=== PATIENT | female | born 1980 | race Caucasian/White ===

== ENCOUNTER 2018-02-07 02:34 | Inpatient (IN) ==
--- NOTE | 2018-02-07 03:40 | P.HPOB ---
History of Present Illness Primary Care Physician: UNKNOWN Dr. Lai Chief Complaint: Contractions History of Present Illness: Patient is a 37-year-old white female 36 weeks previous 1 for breech and now complains of regular contractions with pain. No leakage of fluid or bleeding. Patient sees Dr. Lai for care and then plan to repeat . This baby is also breech on the last exam and ultrasound only days ago Weeks Gestation:: 36 Para: 1 ( section for breech) : 2 Review of Systems Constitutional: Denies anorexia, Denies body ache(s), Denies chills, Denies daytime sleepiness, Denies excessive sweating, Denies fatigue, Denies fever(s), Denies headache(s), Denies increased appetite, Denies lack of energy, Denies malaise, Denies night sweats, Denies weakness, Denies weight gain, Denies weight loss, Denies other Cardiovascular: Denies bluish discoloration of hand/feet, Denies chest pain, Denies chest pain at rest, Denies chest pain with activity, Denies excessive sweating, Denies fainting, Denies fast heart rate, Denies foot swelling, Denies generalized swelling, Denies irregular heart rhythm, Denies leg pain with activity, Denies leg sores, Denies leg swelling, Denies lightheadedness, Denies radiating jaw, neck or arm pain, Denies rapid, pounding, or irregular heartbeat , Denies shortness of breath, Denies shortness of breath with activity, Denies shortness of breath when lying down, Denies shortness of breath causing sudden awakening, Denies slow heart rate, Denies other Respiratory: Denies change in phlegm color, Denies chest congestion, Denies cough, Denies coughing up blood, Denies excessive phlegm production, Denies pain on inspiration, Denies pain with cough, Denies shortness of breath, Denies shortness of breath with activity, Denies snoring, Denies stridor, Denies wheezing, Denies other Gastrointestinal: Reports abdominal pain, Denies belching, Denies black, tarry stools, Denies bloating, Denies bright, red blood in stools, Denies change in bowel habits, Denies constant urge to pass stool, Denies change in stools, Denies coffee ground vomit, Denies constipation, Denies cramping, Denies difficulty swallowing, Denies excessive passing of gas, Denies feeling full early, Denies heartburn, Denies incontinent of stools, Denies loose stools, Denies nausea, Denies pain with swallowing, Denies vomiting, Denies vomiting blood, Denies other Genitourinary: Denies abnormal periods, Denies abnormal vaginal bleeding, Denies absent period, Denies bleeding between periods, Denies blood in urine, Denies difficulty starting urination, Denies difficulty urinating, Denies dribbling after urination, Denies frequent nighttime urination, Denies genital itching, Denies genital lesions, Denies heavy periods, Denies hot flashes, Denies light periods, Denies nipple discharge, Denies painful intercourse, Denies painful periods, Denies painful urination, Denies pelvic pain, Denies prolapse symptoms, Denies sexual problems, Denies side pain, Denies urinary incontinence, Denies urinary urgency, Denies vaginal discharge, Denies vaginal dryness, Denies vaginal odor, Denies vaginal itching, Denies other Neurologic: Denies abnormal hearing, Denies abnormal movements, Denies abnormal speech, Denies abnormal walking, Denies behavioral changes, Denies burning sensations, Denies confusion, Denies dizziness, Denies fainting, Denies frequent falls, Denies headache(s), Denies lack of coordination, Denies localized weakness, Denies loss of vision, Denies memory loss, Denies numbness, Denies other visual disturbances, Denies radiating pain, Denies restless legs, Denies convulsions, Denies seizure-like activity, Denies sensory deficit, Denies tingling, Denies tingling/numbness/burning sensations, Denies tremor(s), Denies unsteadiness, Denies weakness, Denies other PMFSH - Medical History Medical History: Medical History (Last Updated 02/07/18 @ 03:36 by Bakari Dhaliwal MD) Previous section complicating - Tobacco History Smoking Status: Never smoker - Alcohol History How Often Do You Have a Drink Containing Alcohol: Never - Substance Use History Substance History: No History of Abuse - Travel History History of Recent Travel: No Recent Travel in the [facility] Within the Last 8 Weeks: No Recent Travel Out of the Country Within the Last 8 Weeks: No Exam Vital signs: Vital Signs 02/07/18 03:04 02/07/18 03:05 Temperature 98.0 F Pulse Rate 86 Respiratory Rate 18 Blood Pressure 119/71 - Constitutional mild distress - Routine HEENT Exam Head: Present: normocephalic, atraumatic Eye: Present: PERRL - Routine Respiratory Exam Present: CTA bilaterally - Routine Cardiovascular Exam Present: RRR, S1, S2 - Routine Abdominal Exam Comments: Size equal dates - Routine Exam Comments: Closed thick and high - Routine Neurological Exam Present: alert, oriented X3, CN II-XII intact Caprini VTE Risk Assessment Caprini VTE Risk Assessment: No/Low Risk (score <= 1) Caprini Risk Assessment Model: Point Value = 1 Point Value = 2 Point Value = 3 Point Value = 5 Age 41-60 Minor surgery BMI > 25 kg/m2 Swollen legs Varicose veins or History of unexplained or recurrent spontaneous Oral contraceptives or hormone replacement Sepsis (< 1 month) Serious lung disease, including pneumonia (< 1 month) Abnormal pulmonary function Acute myocardial infarction Congestive heart failure (< 1 month) History of inflammatory bowel disease Medical patient at bed rest Age 61-74 Arthroscopic surgery Major open surgery (> 45 min) Laparoscopic surgery (> 45 min) Malignancy Confined to bed (> 72 hours) Immobilizing plaster cast Central venous access Age >= 75 History of VTE Family history of VTE Factor V Leiden Prothrombin [id number] Lupus anticoagulant Anticardiolipin antibodies Elevated serum homocysteine Heparin-induced thrombocytopenia Other congenital or acquired thrombophilia Stroke (< 1 month) Elective arthroplasty Hip, pelvis, or leg fracture Acute spinal cord injury (< 1 month) Prophylaxis Regimen: Total Risk Factor Score Risk Level Prophylaxis Regimen 0-1 Low Early ambulation 2 Moderate Order ONE of the following: *Sequential Compression Device (SCD) *Heparin 5000 units SQ BID 3-4 Higher Order ONE of the following medications: *Heparin 5000 units SQ TID *Enoxaparin/Lovenox 40 mg SQ daily (WT < 150 kg, CrCl > 30 mL/min) *Enoxaparin/Lovenox 30 mg SQ daily (WT < 150 kg, CrCl > 10-29 mL/min) *Enoxaparin/Lovenox 30 mg SQ BID (WT < 150 kg, CrCl > 30 mL/min) AND/OR *Sequential Compression Device (SCD) 5 or more Highest Order ONE of the following medications: *Heparin 5000 units SQ TID (Preferred with Epidurals) *Enoxaparin/Lovenox 40 mg SQ daily (WT < 150 kg, CrCl > 30 mL/min) *Enoxaparin/Lovenox 30 mg SQ daily (WT < 150 kg, CrCl > 10-29 mL/min) *Enoxaparin/Lovenox 30 mg SQ BID (WT < 150 kg, CrCl > 30 mL/min) AND *Sequential Compression Device (SCD) Assessment and Plan - Diagnosis (1) Previous section complicating Code(s): O34.219 - Maternal care for unspecified type scar from previous delivery Status: Acute (2) Uterine contractions during Code(s): O62.2 - Other uterine inertia Status: Acute (3) Breech presentation Code(s): O32.1XX0 - Maternal care for breech presentation, not applicable or unspecified Status: Acute - Plan This patient is a multiparous patient previous at 36 weeks with regular painful contractions are every 3 minutes, will begin IV fluid for hydration check preop labs notify Dr. Lai she may need to repeat section tonight
[2018-02-07] MEDS ORDERED: Citric Acid/Sodium Citrate Liq 30 ML UDC PO SCH (03:45)
[2018-02-07 03:54] LABS: Baso % (Auto) 0.2 % (0.0-2.0); Eos % (Auto) 0.2 % (0.0-4.0); Hematocrit 39.9 % (35.0-46.0); Hemoglobin 13.2 gm/dL (11.6-15.3); Lymph # (Auto) 1.7 th/mm3 (1.0-4.8); Lymph % (Auto) 13.3 % (9.0-44.0); Mean Corpuscular HGB Conc 33.2 % (32.0-36.0); Mean Corpuscular Hemoglobin 28.9 pg (27.0-34.0); Mean Corpuscular Volume 87.1 fL (80.0-100.0); Mean Platelet Volume 11.6 fL (7.0-11.0); Mono # (Auto) 0.9 th/mm3 (0.0-0.9); Mono % (Auto) 7.1 % (0.0-8.0); Neut # (Auto) 10.2 th/mm3 (1.8-7.7); Neut % (Auto) 79.2 % (16.0-70.0); Platelet Count 123 th/mm3 (150-450); Red Blood Count 4.58 mil/mm3 (4.00-5.30); Red Cell Distribution Width 13.7 % (11.6-17.2); White Blood Count 12.8 th/mm3 (4.0-11.0)
[2018-02-07] MEDS ORDERED: ceFAZolin Inj 2,000 MG in Sodium Chlor 0.9% Inj 80 ML IV.SIG SCH (04:00)
[2018-02-07 04:39] LABS: Amphetamine Screen,Urine Neg (Neg); Barbiturate Screen,Urine Neg (Neg); Bilirubin,Urine Negative (Negative); Cannabinoid Screen,Urine Neg (Neg); Clarity,Urine Clear (Clear); Cocaine Screen,Urine Neg (Neg); Color,Urine Yellow (Yellw/Straw); Glucose,Urine (UA) Negative (Negative); Hyaline Casts,Urine 1 /lpf (0-3); Leukocyte Esterase,Urine Negative (Negative); Mucus,Urine Few /lpf (Occasional); Nitrite,Urine Negative (Negative); Specific Gravity,Urine 1.014 (1.002-1.035); Squamous Epithelial Cell,Urine 1 /hpf (0-5)
[2018-02-07 04:46] LABS: Opiate Screen,Urine Neg (Neg)
[2018-02-07] MEDS ORDERED: Morphine Sulfate PF Inj 5 MG/10 ML Ampul ONE (04:52)
[2018-02-07] MEDS ORDERED: Oxytocin 30 Units/500ml Premix 30 UNITS/500 ML BAG IV.SIG ONE (04:58)
[2018-02-07] MEDS ORDERED: Zolpidem Tartrate 5 MG Tablet PO PRN (04:58)
--- NOTE | 2018-02-07 06:51 | MH ---
cc: Yeyo Lai MD DATE OF ADMISSION: 02/07/2018 ADMITTING DIAGNOSES: 1. at 36-37 weeks with early labor. 2. Previous section. 3. Multiparity. HISTORY OF PRESENT ILLNESS: This patient is a 37-year-old white female, para 1-0-0-1, with LMP 05/31/2017, EDC of 03/07/2018. Patient reported contractions starting at 5:30 p.m. yesterday. They have increased in intensity throughout the night. Was admitted this morning with contractions every 2 minutes, extremely painful, with early cervical dilation. She desires repeat section and permanent sterilization. PAST SURGICAL HISTORY: at 38 weeks with early labor, breech. MEDICATIONS: Vitamins. ALLERGIES: NONE. TRANSFUSIONS: None. SOCIAL HISTORY: She is . She is employed. Alcohol, tobacco, and drugs are none. FAMILY HISTORY: Noncontributory. REVIEW OF SYSTEMS: Negative. PHYSICAL EXAMINATION: GENERAL: Gravid white female in labor. HEENT: Normal. CHEST: Clear. HEART: Regular rate. BREASTS: Symmetrical. ABDOMEN: Gravid. EFW of 3000 grams. PELVIC: Cervix is 1-2, 70, possible breech, intact, -3. ASSESSMENT: As above. PLAN: She is now admitted for repeat section and the patient desires permanent sterilization. I advised the tubal is permanent, nonreversible, with a small risk of failure. The patient wished to proceed. Discussed small risk of prematurity. MD BREANA Waller/nahid , 04:56 AM , 05:01 AM
[2018-02-07] MEDS ORDERED: fentaNYL Citrate Inj 100 MCG/2 ML Ampul ONE (06:56)
[2018-02-07] MEDS ORDERED: Oxytocin 30 Units/500ml Premix 30 UNITS/500 ML BAG ONE ×2 (07:49→07:50)
--- NOTE | 2018-02-07 07:49 | MP ---
cc: Yeyo Lai MD DATE OF OPERATION: 02/07/2018 PREOPERATIVE DIAGNOSES: 1. at 36-37 weeks, early labor. 2. Previous section. 3. Multiparity. POSTOPERATIVE DIAGNOSES: 1. at 36-37 weeks, early labor. 2. Previous section. 3. Multiparity. 4. Left ovarian mass 5. Delivered. PROCEDURE PERFORMED: Repeat low transverse section, a right tubal interruption, and a left salpingo-oophorectomy. ANESTHESIA: Spinal and general. SURGEON: Yeyo Lai MD. ESTIMATED BLOOD LOSS: About 800 mL. FLUIDS: 2 liters crystalloid. OBJECTIVE FINDINGS: Following induction of adequate spinal anesthesia, the patient was prepped and draped supine on the operating table in left lateral tilt position in usual sterile fashion, with the bladder being drained via Sheridan catheterization. The abdomen was opened through a Pfannenstiel incision using a knife to excise her old scar. The fascia opened transversely, stripped from the muscles, rectus muscle split in the midline, and the peritoneum opened sharply without incident . With the peritoneal opening, she had sensitivity and was given IV sedation. The bladder flap was taken down sharply and retracted inferiorly. The lower uterine segment incised transversely with a knife, extended with blunt dissection with clear fluid. Baby was in the LOT position. The vacuum extractor applied to the occiput and used to gently lift the head through the abdominal wound. Mouth was suctioned, the cord clamped and cut, and the baby was passed to awaiting team. A viable vigorous male, Apgars 8 and 9. Cord blood sent for typing. The placenta manually removed and the uterine cavity cleaned with laps. The uterus exteriorized and closed in 2 layers running suture, first with a running locking stitch of Vicryl, second with running imbricating stitch of Vicryl. Because of the sensitivity, the patient received endotracheal anesthesia. The right fallopian tube was traced to the normal right ovary and elevated. A window made in the mesosalpinx with a Bovie. The vascular pedicle of the fimbria was clamped with 2 Kellys and the proximal tube with a hemostat. The distal tube and fimbria were then excised with scissors. The vascular pedicle of fimbria was ligated with 2 free ties of 2-0 Vicryl, the proximal tube with 2-0 Vicryl, and the proximal tube buried in the fundus in Adin fashion. The second suture of 2-0 chromic used to further fix the tube to the fundus. The left tube was now traced posteriorly. There was a 10 cm mass involving the left ovary, which was elevated and due to the size and nature was felt to need to be removed. This was done by ligating the round ligament times 2 with #0 Vicryls. This was then opened, cut, and the left ovarian pedicle was isolated, doubly clamped with Kellys, and the left uteroovarian pedicle was clamped with 2 Kellys. This involved excising the distal part of the tube and the left ovary for permanent study. The vascular pedicle of the ovary was then ligated with a free tie of #0 Vicryl and a stick tie of Vicryl and that same for the left uteroovarian pedicle. One area of bleeding at the broad ligament was sutured with #0 Vicryl. Posterior inspection was normal. The uterus was placed in the cavity. Irrigation performed. No bleeding was evident and the bladder flap was closed with a running stitch of 3-0 Vicryl. The tubal site and the left oophorectomy site were now inspected again. There was no bleeding. All laps and retractors removed. Counts were correct, and the anterior peritoneum closed with running 2-0 Vicryl, the fascia with a running locking stitch of #0 Vicryl corner to midline and tied, subcutaneous with 3-0 Vicryl, and the skin with a running subcuticular 3-0 Monocryl. Dermabond applied. All counts were correct and the patient was awakened and taken to the recovery room in good condition. MD BREANA Waller/nahid , 06:35 AM , 06:42 AM
[2018-02-07] MEDS ORDERED: Naloxone Inj 0.4 MG/ML Vial IV.PUSH PRN (07:53)
[2018-02-07] MEDS ORDERED: Oxytocin 30 Units/500ml Premix 30 UNITS/500 ML BAG IV.SIG PRN (09:58)
[2018-02-07] MEDS ORDERED: Phenylephrine/NS 1000 MCG/10ML Syringe IV.PUSH ONE (12:00)
[2018-02-07] MEDS ORDERED: Lidocaine PF 1% Inj 5 ML Syringe INFILTRATN ONE (12:00)
[2018-02-07] MEDS ORDERED: Succinylcholine Inj 100 MG/5 ML Syringe IV.PUSH ONE (12:00)
[2018-02-07 12:53] LABS: Hemoglobin 12.5 gm/dL (11.6-15.3); Mean Corpuscular HGB Conc 33.7 % (32.0-36.0); Mean Corpuscular Hemoglobin 29.1 pg (27.0-34.0); Mean Corpuscular Volume 86.4 fL (80.0-100.0); Mean Platelet Volume 11.2 fL (7.0-11.0); Platelet Count 98 th/mm3 (150-450); Red Blood Count 4.29 mil/mm3 (4.00-5.30); White Blood Count 14.4 th/mm3 (4.0-11.0)
[2018-02-08] MEDS: Simethicone 80 MG Chew Tablet PO PRN ×3 (09:12→22:40)
[2018-02-08] MEDS: Senna/Docusate Sodium 8.6/50 MG Tablet PO PRN (11:48)
[2018-02-08] MEDS: Ibuprofen 600 MG Tablet PO PRN ×2 (11:48→18:05)
[2018-02-08 12:02] LABS: Baso % (Auto) 0.2 % (0.0-2.0); Eos % (Auto) 0.4 % (0.0-4.0); Hematocrit 35.4 % (35.0-46.0); Hemoglobin 11.6 gm/dL (11.6-15.3); Lymph # (Auto) 1.3 th/mm3 (1.0-4.8); Lymph % (Auto) 11.8 % (9.0-44.0); Mean Corpuscular HGB Conc 32.8 % (32.0-36.0); Mean Corpuscular Volume 88.4 fL (80.0-100.0); Mean Platelet Volume 11.7 fL (7.0-11.0); Mono # (Auto) 0.7 th/mm3 (0.0-0.9); Mono % (Auto) 6.4 % (0.0-8.0); Neut % (Auto) 81.2 % (16.0-70.0); Platelet Count 122 th/mm3 (150-450); Red Cell Distribution Width 14.3 % (11.6-17.2); White Blood Count 11.1 th/mm3 (4.0-11.0)
[2018-02-08] MEDS ORDERED: Measles/Mumps/Rubella Vaccine Inj 0.5 ML Vial SQ ONE (16:00)
[2018-02-08] MEDS ORDERED: Diphtheria/Tetanus/Pertussis Vaccine Inj 0.5 ML Syringe IM ONE (16:00)
[2018-02-09] MEDS: Ibuprofen 600 MG Tablet PO PRN ×2 (00:20→06:55)
[2018-02-09] MEDS: Senna/Docusate Sodium 8.6/50 MG Tablet PO PRN (00:21)
[2018-02-09] MEDS: Simethicone 80 MG Chew Tablet PO PRN (11:25)
--- NOTE | 2018-02-11 08:59 | MD ---
cc: Yeyo Lai MD DATE OF DISCHARGE: 02/09/2018 ADMITTING DIAGNOSES: 1. at 36-37 weeks, early labor. 2. Advanced maternal age. 3. Multiparity. 4. Previous . POSTOPERATIVE DISCHARGE DIAGNOSES: 1. at 36-37 weeks, early labor. 2. Advanced maternal age. 3. Multiparity. 4. Previous . PROCEDURE: Repeat low transverse section, a right tubal interruption, and a left salpingo-oophorectomy on 02/07/2018. HISTORY OF PRESENT ILLNESS: The patient is a 37-year-old female, para 1-0-0-1, with a LMP of 03/31/2017, EDC of 03/24/2018. Her ultrasound 8 weeks EDC, and she desired repeat section. She developed labor on the evening of 02/06/2018, admitted on the morning of 02/07/2018. Underwent a repeat section, with delivery of a viable vigorous male . Apgars were 8 and 9, weight 7 pounds 1 ounce. She had a right tubal. The left ovary was enlarged, 10 cm, was removed with a left salpingo-oophorectomy. Postoperatively, she did well, with gradual advancement of diet and activity. DISPOSITION: Discharged home 02/09/2018. The baby's name is Kolby. She is . Her pre- and post-delivery labs are normal. Her blood type is positive. She was carefully instructed in wound instructs and care. Return to see me in one week. She was given a prescription for Percocet 5 one to 2 p.o. q.4 hours, #30. The database was reviewed for the prescriptions. Yeyo Lai MD JAW/kb , 12:01 PM , 12:07 PM
== END 2018-02-09 13:51 | disposition home or self-care (01) ==
LOC: HOBED 02:34 → H2E 04:06 → H1EA 08:15
PROVIDERS: ADMIT Obstetrics & Gynecology; ATTEND Obstetrics & Gynecology